=== PATIENT | male | born 1995 | race Caucasian/White ===

== ENCOUNTER 2021-02-21 13:24 | Emergency (ER) | payer MEDICAID ==
[~2021-02-21] VITALS: Ht 182.9 cm; Wt 136.4 kg
--- NOTE | 2021-02-21 13:49 | EKG ---
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
--- NOTE | 2021-02-21 14:09 | PHYS DOC ---
Past History Past Medical History: Asthma, Schizophrenia Additional Past Medical Histor: Borderline personality, PTSD Past Surgical History: Tonsillectomy Additional Past Surgical Histo: Right leg tumor removal-benign Smoking: Cigarettes Alcohol Use: None Drug Use: None General Adult EDM: Chief Complaint: PSYCH EVALUATION HPI: HPI: 25-year-old male presents via EMS with report of suicidal ideation and auditory hallucinations. Patient does have a history of schizophrenia. Patient reports he hears command voices. Reports they are telling him to "kill himself" and "stab himself ". Patient denies drug use. Patient reports he was recently dis charged from [facility]. Reports they told him "not to come back ". Patient reports concern he might hurt himself. Denies homicidal ideation. Denies fever chills. Denies cough. Denies known exposure to COVID- 19. Review of Systems: Review of Systems: Constitutional: Denies fever or chills Eyes: Denies redness or eye pain HENT: Denies nasal congestion or sore throat Respiratory: Denies cough or shortness of breath Cardiovascular: Denies chest pain or palpitations GI: Denies abdominal pain, nausea, or vomiting : Denies dysuria or hematuria Musculoskeletal: Denies back pain or joint pain Integument: Denies rash or skin lesions Neurologic: Denies headache, focal weakness or sensory changes Psychiatric: Reports suicidal ideation and auditory hallucinations Complete systems were reviewed and found to be within normal limits, except as documented in this note. Allergies: Allergies: Allergies Coded Allergies Type Severity Reaction Last Updated Verified No Known Drug Allergies 02/21/21 No Physical Exam: PE: Constitutional: Well developed, well nourished, no acute distress, non-toxic appearance HENT: Normocephalic, atraumatic Eyes: PERRL, EOMI, conjunctiva normal, no discharge Neck: Normal range of motion, no tenderness, supple Lungs & Thorax: No respiratory distress, equal chest rise and fall Abdomen: Soft, no tenderness Skin: Warm, dry, no erythema, no rash Back: No tenderness, no CVA tenderness Extremities: No tenderness, ROM intact, no edema Neurologic: Alert and oriented X 3, normal motor function, normal sensory function, no focal deficits noted Psychologic: Affect normal, judgment normal EKG: EKG: @1339 Sinus tachycardia at 110bpm, NO ST elevation, QRS 92ms, QT/QTc 314/430ms Radiology/Procedures: Radiology/Procedures: [] Heart Score: C/O Chest Pain: N/A Course & Med Decision Making: Course & Med Decision Making Pertinent Labs and Imaging studies reviewed. (See chart for details) [] Dragon Disclaimer: Dragon Disclaimer: This electronic medical record was generated, in whole or in part, using a voice recognition dictation system. Departure Departure: Impression: Primary Impression: Auditory hallucination Additional Impression: Suicidal ideation Disposition: HOME / SELF CARE / HOMELESS Condition: STABLE Referrals: PCP,NO (PCP) Patient Instructions: Hallucinations and Delusions, Suicidal Feelings, How to Help Yourself DIANA MAURICE DO Feb 21, 2021 14:09
[2021-02-21 14:28] LABS: BASO # 0.1 x10^3/uL (0.0-0.2); BASO % 1 % (0-3); EOS # 0.2 x10^3/uL (0.0-0.7); EOS % 3 % (0-3); HEMATOCRIT 42.7 % (39.0-53.0); HEMOGLOBIN 14.6 g/dL (13.0-17.5); LYMPH # 2.8 x10^3/uL (1.0-4.8); LYMPH % 35 % (24-48); MEAN CORPUSCULAR HEMOGLOBIN 30 pg (25-35); MEAN CORPUSCULAR HGB CONC 34 g/dL (31-37); MEAN CORPUSCULAR VOLUME 87 fL (79-100); MONO # 0.5 x10^3/uL (0.0-1.1); MONO % 6 % (0-9); NEUT # 4.5 x10^3uL (1.8-7.7); NEUT % 56 % (31-73); PLATELET COUNT 268 x10^3/uL (140-400); RED CELL DISTRIBUTION WIDTH 12.7 % (11.5-14.5)
[2021-02-21 14:33] LABS: CALCIUM 9.6 mg/dL (8.5-10.1); CREATININE 0.9 mg/dL (0.7-1.3); GFR 102.8; POTASSIUM 4.1 mmol/L (3.5-5.1)
[2021-02-21 14:38] LABS: BARBITURATES NEG (NEG); BENZODIAZEPINES NEG (NEG); CANNABINOIDS NEG (NEG); COCAINE NEG (NEG); METHADONE NEG (NEG); OPIATES NEG (NEG); PHENCYCLIDINE NEG (NEG)
[2021-02-21 14:39] LABS: ACETAMIN < 2.0 mcg/mL (10-30); ALBUMIN/GLOBULIN RATIO 1.1 (1.0-1.7); MAGNESIUM 1.9 mg/dL (1.8-2.4); SALIC < 2.8 mg/dL (2.8-20.0); TOTAL BILIRUBIN 0.3 mg/dL (0.2-1.0); TOTAL PROTEIN 7.5 g/dL (6.4-8.2)
[2021-02-21 14:40] LABS: AMPHETAMINE/METHAMPHETAMINE NEG (NEG); ETHANOL < 10 mg/dL (0-10)
[2021-02-21 14:52] LABS: BILIRUBIN,URINE NEG (NEG); CLARITY,URINE CLEAR; COLOR,URINE YELLOW; GLUCOSE,URINE NEG (NEG)
[2021-02-21 14:53] LABS: BACTERIA,URINE 0 /HPF (0-FEW); NITRITE,URINE NEG (NEG); RBC,URINE 0 /HPF (0-2); UROBILINOGEN,URINE 0.2 mg/dL (0.2 mg/dL); WBC,URINE 0 /HPF (0-4)
[2021-02-21 18:43] VITALS: BP 130/88
== END 2021-02-21 18:48 | disposition home or self-care (01) ==
LOC: ER 13:24
DX: R45.851 Suicidal ideations (principal); R44.0 Auditory hallucinations; J45.909 Unspecified asthma, uncomplicated; F20.9 Schizophrenia, unspecified; F17.210 Nicotine dependence, cigarettes, uncomplicated; F43.10 Post-traumatic stress disorder, unspecified; Z20.822 Contact with and (suspected) exposure to COVID-19
CPT/HCPCS: 36415; 80053; 80307; 80329; 81001; 83735; 85025; 87426; 93005; 99285; C9803; G0480; U0003

== ENCOUNTER 2021-03-01 18:48 | Emergency (ER) | payer SELFPAY ==
[~2021-03-01] VITALS: Ht 182.9 cm; Wt 136.4 kg
[2021-03-01] MEDS ORDERED: ALBU2.5V8 IH (19:07)
--- NOTE | 2021-03-01 19:07 | PHYS DOC ---
Past History Past Medical History: Asthma, Schizophrenia Additional Past Medical Histor: Borderline personality, PTSD Past Surgical History: Tonsillectomy Additional Past Surgical Histo: Right leg tumor removal-benign Smoking: Cigarettes Alcohol Use: None Drug Use: None Adult General Chief Complaint Chief Complaint: MULTIPLE COMPLAINTS [facility] HPI Patient is a 25-year-old male with a past medical history significant for asthma who presents to the emergency department with a chief complaint of shortness of breath. States that over the last day or so he has had some shortness of breath and wheeze but has been out of his albuterol inhaler because he has not had time to make it to the pharmacy. Denies any recent travel, illnesses, fevers, chest pain, abdominal pain, nausea, vomiting. Denies any other cold/flu/cold symptoms. States he is otherwise eating and drinking normally. States he is making urine and stool normally for him. States that he is here to get an albuterol treatment and see if he can get some albuterol for home. Review of Systems Review of Systems Review of systems otherwise unremarkable except noted in HPI Allergies Allergies Allergies Coded Allergies Type Severity Reaction Last Updated Verified No Known Drug Allergies 02/21/21 No Physical Exam Physical Exam Constitutional: Well developed, well nourished, no acute distress, non-toxic appearance. [] Eyes: conjunctiva normal, no discharge. [] Neck: Normal range of motion, no tenderness, supple, no stridor. [] Cardiovascular: Sinus tachycardia Lungs & Thorax: Mild bilateral upper lobe and expiratory wheeze Abdomen: soft, no tenderness, no masses, no pulsatile masses. [] Skin: Warm, dry, no erythema, no rash. [] Neurologic: Alert and oriented X 3, normal motor function, normal sensory function, no focal deficits noted. [] Psychologic: Affect normal, judgement normal, mood normal. [] EKG EKG EKG with a rate of 115, QRS of 94, QTc of 422, no STEMI. Otherwise normal EKG. [] Radiology/Procedures Radiology/Procedures [] Heart Score C/O Chest Pain: No Risk Factors: Risk Factors: DM, Current or recent (<one month) smoker, HTN, HLP, family history of CAD, obesity. Risk Scores: Risk Factors: DM, Current or recent (<one month) smoker, HTN, HLP, family history of CAD, obesity. Course & Med Decision Making Course & Med Decision Making Patient is a 25-year-old male who presents with asthma exacerbation/wheeze and requesting prescription for albuterol Vital signs notable for sinus tachycardia. Physical exam noted above. Patient given steroids and breathing treatment in the ED and given both prescription for albuterol and spacer. Advised patient to follow-up with primary care physician as soon as he can and make it to the pharmacy to case picker his other prescriptions. Gave return precautions to the ED. Patient grateful, verbalized understanding and agreed with plan of discharge. [] Dragon Disclaimer Dragon Disclaimer This electronic medical record was generated, in whole or in part, using a voice recognition dictation system. Departure Departure: Impression: Primary Impression: Asthma exacerbation Disposition: HOME / SELF CARE / HOMELESS Condition: GOOD Referrals: PCP,NO (PCP) Patient Instructions: Asthma Attacks, Prevention, Asthma, Acute Bronchospasm Additional Instructions: Please read all of the attached information carefully. Please use your albuterol inhaler and spacer as demonstrated and discussed. You are given a prescription that is new for your albuterol just in case you are unable to get your other one filled. Please call your primary care physician as soon as you can to update on ED visit and set up a follow-up as soon as you can. Please come back to the emergency department immediately with new or concerning symptoms as discussed. Scripts Albuterol Sulfate (PROAIR HFA INHALER) 8.5 Gm Hfa.aer.ad 2 PUFF IH PRN Q4-6HRS PRN for wheezing for 21 Days, #1 INHALER 0 Refills Prov: CLARE KAUFMAN MD 03/01/21 CLARE KAUFMAN MD Mar 01, 2021 19:07
[2021-03-01] MEDS ORDERED: DEXAMETHASONE 4 MG TABLET PO ONE (19:15)
[2021-03-01] MEDS ORDERED: ALBUTEROL SULFATE 8GM INHALER. INH ONE (19:15)
[2021-03-01 19:17] VITALS: BP 150/82
--- NOTE | 2021-03-01 19:58 | EKG ---
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
== END 2021-03-01 19:20 | disposition home or self-care (01) ==
LOC: ER 18:48
DX: J45.901 Unspecified asthma with (acute) exacerbation (principal); F20.9 Schizophrenia, unspecified; F43.10 Post-traumatic stress disorder, unspecified; F17.210 Nicotine dependence, cigarettes, uncomplicated
CPT/HCPCS: 93005; 94640; 99283; J8540; 94664

== ENCOUNTER 2021-03-01 20:02 | Emergency (ER) | payer SELFPAY ==
[~2021-03-01] VITALS: Ht 177.8 cm; Wt 122.0 kg
[~2021-03-01 20:02] MED LIST: ALBU2.5V8 IH
[2021-03-01 21:20] LABS: BASO # 0.1 x10^3/uL (0.0-0.2); BASO % 1 % (0-3); EOS # 0.1 x10^3/uL (0.0-0.7); EOS % 1 % (0-3); HEMATOCRIT 43.8 % (39.0-53.0); HEMOGLOBIN 14.8 g/dL (13.0-17.5); LYMPH # 2.5 x10^3/uL (1.0-4.8); LYMPH % 17 % (24-48); MEAN CORPUSCULAR HEMOGLOBIN 29 pg (25-35); MEAN CORPUSCULAR HGB CONC 34 g/dL (31-37); MEAN CORPUSCULAR VOLUME 86 fL (79-100); MONO # 0.6 x10^3/uL (0.0-1.1); MONO % 4 % (0-9); NEUT # 11.5 x10^3uL (1.8-7.7); NEUT % 77 % (31-73); PLATELET COUNT 283 x10^3/uL (140-400); RED BLOOD COUNT 5.06 x10^6/uL (4.30-5.70); RED CELL DISTRIBUTION WIDTH 12.8 % (11.5-14.5); WHITE BLOOD COUNT 14.9 x10^3/uL (4.0-11.0)
[2021-03-01 21:24] LABS: CALCIUM 10.3 mg/dL (8.5-10.1); POTASSIUM 3.7 mmol/L (3.5-5.1)
[2021-03-01 21:26] LABS: ACETAMIN < 2.0 mcg/mL (10-30); BARBITURATES NEG (NEG); BENZODIAZEPINES NEG (NEG); CANNABINOIDS NEG (NEG); COCAINE NEG (NEG); ETHANOL < 10 mg/dL (0-10); METHADONE NEG (NEG); OPIATES NEG (NEG); PHENCYCLIDINE NEG (NEG); SALIC < 2.8 mg/dL (2.8-20.0)
--- NOTE | 2021-03-01 21:26 | PHYS DOC ---
Adult General Chief Complaint Chief Complaint: SUICIDAL IDEATION HPI HPI Patient is a 25-year-old homeless male with a past medical history of schizophrenia who presents to the emergency department with a chief complaint of suicidal ideations and audio hallucinations. States he was just in the emergency department earlier in the day for an asthma exacerbation, was treated and released. States he did not really have any were to go, and was hearing voices so he called the ambulance. States he asked the ambulance to take him to [place] because that is where he wanted to go the EMS brought him here. Patient states he has had several visits to several hospitals over the [place] [facility] couple of months for similar complaints, and has seen the psychiatric team's and been offered admission but has never excepted. Denies any recent travel, traumas, illnesses, fevers, known ill contacts, chest pain, shortness of breath, abdominal pain, nausea, vomiting. Denies any numbness/weakness/tingling. Denies any alcohol or drug use. States he has had transient thoughts of wanting to be but does not have a plan. Denies homicidal ideation. States he is hearing voices that tell him he is worthless. Review of Systems Review of Systems Review of systems otherwise unremarkable except noted in HPI Physical Exam Physical Exam Constitutional: Well developed, well nourished, no acute distress, non-toxic appearance. [] HENT: Normocephalic, atraumatic, bilateral external ears normal, oropharynx moist, no oral exudates, nose normal. [] Eyes: PERRLA, EOMI, conjunctiva normal, no discharge. [] Neck: Normal range of motion, no tenderness, supple, no stridor. [] Cardiovascular:Heart rate regular rhythm, no murmur [] Lungs & Thorax: Bilateral breath sounds clear to auscultation [] Abdomen: Bowel sounds normal, soft, no tenderness, no masses, no pulsatile masses. [] Skin: Warm, dry, no erythema, no rash. [] Back: No tenderness, no CVA tenderness. [] Extremities: No tenderness, no cyanosis, no clubbing, ROM intact, no edema. [] Neurologic: Alert and oriented X 3, normal motor function, normal sensory function, no focal deficits noted. [] Psychologic: Awake, alert and pleasant, cooperative, normal speech and cognition, endorses transient thoughts of wanting to be but no active plan. Denies homicidal ideation. Endorses audio hallucinations of voices telling him he is worthless. EKG EKG [] Radiology/Procedures Radiology/Procedures [] Heart Score C/O Chest Pain: No Risk Factors: Risk Factors: DM, Current or recent (<one month) smoker, HTN, HLP, family history of CAD, obesity. Risk Scores: Risk Factors: DM, Current or recent (<one month) smoker, HTN, HLP, family history of CAD, obesity. Course & Med Decision Making Course & Med Decision Making Patient is a 25-year-old male that presents to the emergency department with complaints of being homeless, and hearing voices Vital signs not concerning. Physical exam noted above. PAT team evaluated, and felt patient was safe to discharge home with a safety plan. Discussed all findings with patient and offered admission, and patient stated he was actually feeling well and actually would just wanted a ride to [place] but appreciated the evaluation. Advised to follow-up with primary care physician and as soon as he can to update on ED visit, and psychiatric evaluation as well as safety plan. Gave strict return precautions to the ED. Patient grateful, verbalized understanding and agreed with plan of discharge. Patient called a cab at his request. [] Dragon Disclaimer Dragon Disclaimer This electronic medical record was generated, in whole or in part, using a voice recognition dictation system. Departure Departure: Impression: Primary Impression: Suicidal thoughts Additional Impressions: Auditory hallucinations Homelessness Disposition: HOME / SELF CARE / HOMELESS Condition: GOOD Referrals: BHAKTI CLARKE MD Patient Instructions: Suicidal Feelings, How to Help Yourself Additional Instructions: Please read all the attached information and the information given to you by the psychiatric steam engineer given to you including your safety plan carefully. Thalia boland call your primary care physician first thing Thursday morning to update on your ED visit, your psychiatric visit and your safety plan. As discussed call 911, and please come back to the emergency department immediately if you have any new or concerning symptoms as discussed. Problem Qualifiers CLARE KAUFMAN MD Mar 01, 2021 21:26
[2021-03-01 21:28] LABS: AMPHETAMINE/METHAMPHETAMINE NEG (NEG)
[2021-03-01 21:30] LABS: ALBUMIN 4.1 g/dL (3.4-5.0); TOTAL BILIRUBIN 0.3 mg/dL (0.2-1.0); TOTAL PROTEIN 8.4 g/dL (6.4-8.2)
[2021-03-01 22:33] VITALS: BP 138/90
== END 2021-03-01 22:32 | disposition home or self-care (01) ==
LOC: ER 20:02 → MERGE 20:02 → ER 22:32
DX: R45.851 Suicidal ideations (principal); R44.0 Auditory hallucinations; Z59.0 Homelessness; J45.901 Unspecified asthma with (acute) exacerbation
CPT/HCPCS: 36415; 80053; 80307; 80329; 85025; 99285; G0480

== ENCOUNTER 2021-03-02 15:44 | Emergency (ER) | payer SELFPAY ==
[~2021-03-02] VITALS: Ht 182.9 cm; Wt 136.4 kg
[2021-03-02 15:44] VITALS: BP 138/83
[2021-03-02 16:35] LABS: BASO # 0.1 x10^3/uL (0.0-0.2); BASO % 0 % (0-3); EOS % 0 % (0-3); HEMATOCRIT 42.8 % (39.0-53.0); HEMOGLOBIN 14.5 g/dL (13.0-17.5); LYMPH # 1.5 x10^3/uL (1.0-4.8); LYMPH % 10 % (24-48); MEAN CORPUSCULAR HEMOGLOBIN 29 pg (25-35); MEAN CORPUSCULAR HGB CONC 34 g/dL (31-37); MEAN CORPUSCULAR VOLUME 87 fL (79-100); MONO # 0.6 x10^3/uL (0.0-1.1); MONO % 4 % (0-9); NEUT # 12.6 x10^3uL (1.8-7.7); NEUT % 85 % (31-73); PLATELET COUNT 304 x10^3/uL (140-400); RED BLOOD COUNT 4.95 x10^6/uL (4.30-5.70); RED CELL DISTRIBUTION WIDTH 13.1 % (11.5-14.5); WHITE BLOOD COUNT 14.9 x10^3/uL (4.0-11.0)
[2021-03-02 16:41] LABS: BILIRUBIN,URINE NEG (NEG); CLARITY,URINE CLEAR; COLOR,URINE YELLOW; GLUCOSE,URINE NEG (NEG); NITRITE,URINE NEG (NEG); UROBILINOGEN,URINE 0.2 mg/dL (0.2 mg/dL)
[2021-03-02 16:43] LABS: BACTERIA,URINE 0 /HPF (0-FEW); RBC,URINE 0 /HPF (0-2); WBC,URINE 0 /HPF (0-4)
[2021-03-02 16:44] LABS: AMPHETAMINE/METHAMPHETAMINE NEG (NEG); BARBITURATES NEG (NEG); BENZODIAZEPINES NEG (NEG); CANNABINOIDS NEG (NEG); COCAINE NEG (NEG); METHADONE NEG (NEG); OPIATES NEG (NEG); PHENCYCLIDINE NEG (NEG)
[2021-03-02 16:46] LABS: CALCIUM 10.2 mg/dL (8.5-10.1); CREATININE 1.1 mg/dL (0.7-1.3); GFR 81.6; POTASSIUM 3.6 mmol/L (3.5-5.1)
[2021-03-02 16:51] LABS: ALBUMIN 4.1 g/dL (3.4-5.0); ALBUMIN/GLOBULIN RATIO 0.9 (1.0-1.7); TOTAL BILIRUBIN 0.3 mg/dL (0.2-1.0); TOTAL PROTEIN 8.5 g/dL (6.4-8.2)
--- NOTE | 2021-03-02 17:40 | PHYS DOC ---
Past History Past Medical History: Asthma, Schizophrenia Additional Past Medical Histor: Borderline personality, PTSD Past Surgical History: Tonsillectomy Additional Past Surgical Histo: Right leg tumor removal-benign Smoking: Cigarettes Alcohol Use: None Drug Use: None Adult General Chief Complaint Chief Complaint: SUICIDAL IDEATION [facility] Patient is 25-year-old male with past medical history of borderline personality disorder and PTSD who presents to the emergency room complaining of suicidal ideations and hearing voices. Patient states that he felt fine until some guys started fighting in the park and his voices started. He then became suicidal. Patient has been evaluated for similar symptoms 4 times in the last 10 days at [facility]. According to patient's guardian he has spent almost every day over the last year in a psychiatric facility. She states that a week ago he spent several days at [facility] awaiting placement before being discharged. Patient does not have a plan. Review of Systems Review of Systems Complete ROS is negative unless otherwise documented in [facility] Allergies Allergies Allergies Coded Allergies Type Severity Reaction Last Updated Verified No Known Drug Allergies 02/21/21 No Physical Exam Physical Exam General: Awake, alert, NAD. Well Nourished, well hydrated. Cooperative, sunburn diffusely HEENT: Atraumatic, EOMI, PERRL, airway patent, moist oral mucosa Neck: Supple, trachea midline Respiratory: CTA bilaterally, normal effort, no wheezing/crackles CV: RRR, no murmur, cap refill <2 GI: Soft, nondistended, nontender, no masses MSK: No obvious deformities Skin: Warm, dry, intact Neuro: A&O x3, speech NL, sensory and motor grossly intact, no focal deficits Psych: Normal affect, normal mood Current Patient Data Vital Signs Vital Signs Date Time Temp Pulse Resp B/P (MAP) Pulse Ox O2 Delivery O2 Flow Rate FiO2 03/02/21 15:44 98.3 122 20 138/83 (101) 100 Room Air Lab Results Laboratory Tests Test 03/02/21 16:05 03/02/21 16:14 Urine Collection Type Unknown Urine Color Yellow Urine Clarity Clear Urine pH 6.5 Urine Specific [place] 1.025 Urine Protein Trace (NEG-TRACE) Urine Glucose (UA) Neg mg/dL (NEG) Urine Ketones (Stick) 40 mg/dL (NEG) Urine Blood Neg (NEG) Urine Nitrite Neg (NEG) Urine Bilirubin Neg (NEG) Urine Urobilinogen Dipstick 0.2 mg/dL (0.2 mg/dL) Urine Leukocyte Esterase Neg (NEG) Urine RBC 0 /HPF (0-2) Urine WBC 0 /HPF (0-4) Urine Bacteria 0 /HPF (0-FEW) White Blood Count 14.9 x10^3/uL (4.0-11.0) H Red Blood Count 4.95 x10^6/uL (4.30-5.70) Hemoglobin 14.5 g/dL (13.0-17.5) Hematocrit 42.8 % (39.0-53.0) Mean Corpuscular Volume 87 fL (79-100) Mean Corpuscular Hemoglobin 29 pg (25-35) Mean Corpuscular Hemoglobin Concent 34 g/dL (31-37) Red Cell Distribution Width 13.1 % (11.5-14.5) Platelet Count 304 x10^3/uL (140-400) Neutrophils (%) (Auto) 85 % (31-73) H Lymphocytes (%) (Auto) 10 % (24-48) L Monocytes (%) (Auto) 4 % (0-9) Eosinophils (%) (Auto) 0 % (0-3) Basophils (%) (Auto) 0 % (0-3) Neutrophils # (Auto) 12.6 x10^3uL (1.8-7.7) H Lymphocytes # (Auto) 1.5 x10^3/uL (1.0-4.8) Monocytes # (Auto) 0.6 x10^3/uL (0.0-1.1) Eosinophils # (Auto) 0.0 x10^3/uL (0.0-0.7) Basophils # (Auto) 0.1 x10^3/uL (0.0-0.2) Sodium Level 137 mmol/L (136-145) Potassium Level 3.6 mmol/L (3.5-5.1) Chloride Level 101 mmol/L (98-107) Carbon Dioxide Level 28 mmol/L (21-32) Anion Gap 8 (6-14) Blood Urea Nitrogen 23 mg/dL (8-26) Creatinine 1.1 mg/dL (0.7-1.3) Estimated GFR (Cockcroft-Gault) 81.6 BUN/Creatinine Ratio 21 (6-20) H Glucose Level 156 mg/dL (70-99) H Calcium Level 10.2 mg/dL (8.5-10.1) H Total Bilirubin 0.3 mg/dL (0.2-1.0) Aspartate Amino Transferase (AST) 17 U/L (15-37) Alanine Aminotransferase (ALT) 32 U/L (16-63) Alkaline Phosphatase 48 U/L (46-116) Total Protein 8.5 g/dL (6.4-8.2) H Albumin 4.1 g/dL (3.4-5.0) Albumin/Globulin Ratio 0.9 (1.0-1.7) L Urine Opiates Screen Neg (NEG) Urine Methadone Screen Neg (NEG) Urine Barbiturates Neg (NEG) Urine Phencyclidine Screen Neg (NEG) Urine Amphetamine/Methamphetamine Neg (NEG) Urine Benzodiazepines Screen Neg (NEG) Urine Cocaine Screen Neg (NEG) Urine Cannabinoids Screen Neg (NEG) Ethyl Alcohol Level < 10 mg/dL (0-10) Urine Ethyl Alcohol Neg (NEG) EKG EKG [] Radiology/Procedures Radiology/Procedures [] Heart Score C/O Chest Pain: N/A Risk Factors: Risk Factors: DM, Current or recent (<one month) smoker, HTN, HLP, family history of CAD, obesity. Risk Scores: Risk Factors: DM, Current or recent (<one month) smoker, HTN, HLP, family history of CAD, obesity. Course & Med Decision Making Course & Med Decision Making Pertinent Labs and Imaging studies reviewed. (See chart for details) Patient is a 25-year-old with a history of borderline personality disorder who presents to the Emergency Room with suicidal ideations and hearing voices. Upon arrival the the Emergency Room, patient was changed into a gown and personal belongings were taken to security for safety. Patient was placed on a one-on-one. Lab work was ordered if requested by psychiatric team. PAT team was consulted for evaluation. After discussion with PAT team the decision was made to pursue safety plan. This appears to be the patient's baseline. He is no longer complaining of suicidal ideations but is complaining of voices. Patient will go to [facility]. Ernst Disclaimer Dragon Disclaimer This electronic medical record was generated, in whole or in part, using a voice recognition dictation system. Departure Departure: Impression: Primary Impression: Borderline personality disorder Additional Impression: Auditory hallucination Disposition: [address] [place] [address] ([facility]) Referrals: STACEY JOHNSON MD (PCP) Patient Instructions: Borderline Personality Disorder Problem Qualifiers LANCE FUNK MD Mar 02, 2021 17:39
== END 2021-03-02 19:29 ==
LOC: ER 15:44
DX: R44.0 Auditory hallucinations (principal); J45.909 Unspecified asthma, uncomplicated; F43.10 Post-traumatic stress disorder, unspecified; F17.210 Nicotine dependence, cigarettes, uncomplicated
CPT/HCPCS: 36415; 80053; 80307; 81001; 85025; 99285; G0480

== ENCOUNTER 2021-03-04 01:47 | Emergency (ER) | payer SELFPAY ==
[~2021-03-04] VITALS: Ht 182.9 cm; Wt 136.4 kg
[2021-03-04 01:57] VITALS: BP 143/91
--- NOTE | 2021-03-04 02:03 | PHYS DOC ---
Past History Past Medical History: Asthma, Schizophrenia Additional Past Medical Histor: Borderline personality, PTSD Past Surgical History: Tonsillectomy Additional Past Surgical Histo: Right leg tumor removal-benign Smoking: Cigarettes Alcohol Use: None Drug Use: None General Adult EDM: Chief Complaint: HALLUCINATIONS AUDIBLE/VISUAL HPI: HPI: 25-year-old male presents for audible hallucinations. The patient started having these hallucinations around 8 PM tonight. Patient has diagnosed schizoaffective disorder. He has been dealing with voices on and off for many years. The voices are telling him to hurt himself or kill himself. They are not giving any specific directions. The patient is taking his medications as prescribed. He states that he was unable to get into the senior care tonight because he got there late. He was working all day. Patient denies any falls or trauma. He has no other complaints at this time. Review of Systems: Review of Systems: Constitutional: Denies fever or chills Eyes: Denies change in visual acuity HENT: Denies nasal congestion or sore throat Respiratory: Denies cough or shortness of breath Cardiovascular: Denies chest pain or edema GI: Denies abdominal pain, nausea, vomiting, bloody stools or diarrhea : Denies dysuria Musculoskeletal: Denies back pain or joint pain Integument: Denies rash Neurologic: Denies headache, focal weakness or sensory changes. Audible hallucinations Endocrine: Denies polyuria or polydipsia Lymphatic: Denies swollen glands Psychiatric: Denies depression or anxiety Allergies: Allergies: Allergies Coded Allergies Type Severity Reaction Last Updated Verified No Known Drug Allergies 03/04/21 No Physical Exam: PE: Constitutional: Well developed, well nourished, obese, no acute distress, non- toxic appearance. [] HENT: Normocephalic, atraumatic, bilateral external ears normal, oropharynx moist, no oral exudates, nose normal. [] Eyes: PERRLA, EOMI, conjunctiva normal, no discharge. [] Neck: Normal range of motion, no tenderness, supple, no stridor. [] Cardiovascular: Heart rate regular rhythm, no murmur [] Lungs & Thorax: Bilateral breath sounds clear to auscultation [] Abdomen: Bowel sounds normal, soft, no tenderness, no masses, no pulsatile masses. [] Skin: Warm, dry, no erythema, no rash. Sunburn on the face and lower arms bilaterally [] Back: No tenderness, no CVA tenderness. [] Extremities: No tenderness, no cyanosis, no clubbing, ROM intact, no edema. [] Neurologic: Alert and oriented X 3, normal motor function, normal sensory function, no focal deficits noted. [] Psychologic: Affect normal, judgement normal, mood normal. [] EKG: EKG: [] Radiology/Procedures: Radiology/Procedures: [] Heart Score: C/O Chest Pain: N/A Risk Factors: Risk Factors: DM, Current or recent (<one month) smoker, HTN, HLP, family history of CAD, obesity. Risk Scores: Score 0 - 3: 2.5% MACE over next 6 weeks - Discharge Home Score 4 - 6: 20.3% MACE over next 6 weeks - Admit for Clinical Observation Score 7 - 10: 72.7% MACE over next 6 weeks - Early Invasive Strategies Course & Med Decision Making: Course & Med Decision Making Pertinent Labs and Imaging studies reviewed. (See chart for details) The patient's labs are unremarkable. His urine drug screen is negative. His urinalysis is negative for infection. He is medically stable for psychiatric evaluation. The patient psychiatric anti air warfare operations officer has determined that the patient can be safely discharged home. [facility]. He is stable for discharge at this time. [] Dragon Disclaimer: Ernst Disclaimer: This electronic medical record was generated, in whole or in part, using a voice recognition dictation system. Departure Departure: Impression: Primary Impression: Suicidal thoughts Additional Impression: Hallucination Disposition: 01 HOME / SELF CARE / HOMELESS Condition: STABLE Referrals: STACEY JOHNSON MD (PCP) Patient Instructions: Hallucinations and Delusions GUI WIGGINS DO Mar 04, 2021 02:03
[2021-03-04 02:45] LABS: BASO # 0.1 x10^3/uL (0.0-0.2); BASO % 1 % (0-3); EOS # 0.2 x10^3/uL (0.0-0.7); EOS % 2 % (0-3); HEMATOCRIT 41.8 % (39.0-53.0); HEMOGLOBIN 14.3 g/dL (13.0-17.5); LYMPH # 3.6 x10^3/uL (1.0-4.8); LYMPH % 44 % (24-48); MEAN CORPUSCULAR HEMOGLOBIN 30 pg (25-35); MEAN CORPUSCULAR HGB CONC 34 g/dL (31-37); MEAN CORPUSCULAR VOLUME 87 fL (79-100); MONO # 0.4 x10^3/uL (0.0-1.1); MONO % 5 % (0-9); NEUT % 48 % (31-73); PLATELET COUNT 286 x10^3/uL (140-400); RED CELL DISTRIBUTION WIDTH 13.1 % (11.5-14.5); WHITE BLOOD COUNT 8.3 x10^3/uL (4.0-11.0)
[2021-03-04 02:46] LABS: BACTERIA,URINE 0 /HPF (0-FEW); BILIRUBIN,URINE NEG (NEG); CLARITY,URINE CLEAR; COLOR,URINE YELLOW; GLUCOSE,URINE NEG (NEG); NITRITE,URINE NEG (NEG); RBC,URINE 0 /HPF (0-2); SQUAMOUS EPITHELIAL CELL,UR OCC /LPF; UROBILINOGEN,URINE 0.2 mg/dL (0.2 mg/dL); WBC,URINE OCC /HPF (0-4)
[2021-03-04 02:52] LABS: CALCIUM 9.2 mg/dL (8.5-10.1); CREATININE 0.8 mg/dL (0.7-1.3); GFR 117.8
[2021-03-04 02:54] LABS: BARBITURATES NEG (NEG); BENZODIAZEPINES NEG (NEG); CANNABINOIDS NEG (NEG); COCAINE NEG (NEG); METHADONE NEG (NEG); OPIATES NEG (NEG); PHENCYCLIDINE NEG (NEG)
[2021-03-04 02:56] LABS: AMPHETAMINE/METHAMPHETAMINE NEG (NEG)
[2021-03-04 02:58] LABS: ALBUMIN 3.7 g/dL (3.4-5.0); ALBUMIN/GLOBULIN RATIO 0.9 (1.0-1.7); TOTAL BILIRUBIN 0.2 mg/dL (0.2-1.0); TOTAL PROTEIN 7.6 g/dL (6.4-8.2)
== END 2021-03-04 04:42 | disposition home or self-care (01) ==
LOC: ER 01:47
DX: R45.851 Suicidal ideations (principal); F25.9 Schizoaffective disorder, unspecified; J45.909 Unspecified asthma, uncomplicated; F17.210 Nicotine dependence, cigarettes, uncomplicated
CPT/HCPCS: 36415; 80053; 80307; 81001; 85025; 99285-25

== ENCOUNTER → 2021-03-12 | Emergency (ER) | payer SELFPAY ==
[~2021-03-12] VITALS: Ht 182.9 cm; Wt 136.4 kg
[2021-03-12 18:24] LABS: CALCIUM 9.7 mg/dL (8.5-10.1); CREATININE 0.8 mg/dL (0.7-1.3); GFR 117.8; POTASSIUM 3.8 mmol/L (3.5-5.1)
[2021-03-12 18:26] LABS: BASO % 0 % (0-3); EOS # 0.3 x10^3/uL (0.0-0.7); EOS % 4 % (0-3); HEMATOCRIT 46.2 % (39.0-53.0); HEMOGLOBIN 15.2 g/dL (13.0-17.5); LYMPH % 34 % (24-48); MEAN CORPUSCULAR HEMOGLOBIN 29 pg (25-35); MEAN CORPUSCULAR HGB CONC 33 g/dL (31-37); MEAN CORPUSCULAR VOLUME 88 fL (79-100); MONO # 0.6 x10^3/uL (0.0-1.1); MONO % 7 % (0-9); NEUT # 4.8 x10^3uL (1.8-7.7); NEUT % 55 % (31-73); PLATELET COUNT 308 x10^3/uL (140-400); RED BLOOD COUNT 5.27 x10^6/uL (4.30-5.70); RED CELL DISTRIBUTION WIDTH 13.3 % (11.5-14.5); WHITE BLOOD COUNT 8.7 x10^3/uL (4.0-11.0)
[2021-03-12 18:30] LABS: ALBUMIN/GLOBULIN RATIO 1.1 (1.0-1.7); TOTAL BILIRUBIN 0.2 mg/dL (0.2-1.0); TOTAL PROTEIN 7.6 g/dL (6.4-8.2)
--- NOTE | 2021-03-12 18:38 | PHYS DOC ---
Past History Past Medical History: Anxiety, Asthma, Schizophrenia Additional Past Medical Histor: Borderline personality, PTSD, schizo effective d/o Past Surgical History: Tonsillectomy Additional Past Surgical Histo: Right leg tumor removal-benign Smoking: Cigarettes Alcohol Use: None Additional Alcohol Information: 4-5 beers today Drug Use: None Adult General Chief Complaint Chief Complaint: PSYCH EVALUATION HPI HPI Patient is a 25-year-old male with a past medical history of schizophrenia who presents to the emergency department with a chief complaint of anxiety and audio hallucinations. States he has been otherwise doing well and going to the [facility] and has his medications at home but fell off the wagon and did some methamphetamine on Thursday and drink alcohol today. Does state that whenever he does that, it seems to make and hear things. States that he has had some voices telling him that he is worthless and would be better off but has no suicidal ideation, homicidal ideation, or plan of hurting himself or anybody else. Denies any recent travel, illnesses, fevers, chest pain, shortness of breath, abdominal pain, nausea, vomiting. States has been eating and drinking normal for him. Review of Systems Review of Systems Review of systems otherwise unremarkable except noted in HPI Allergies Allergies Allergies Coded Allergies Type Severity Reaction Last Updated Verified No Known Allergies Allergy Unknown 03/04/21 Yes Physical Exam Physical Exam Constitutional: Well developed, well nourished, no acute distress, non-toxic appearance. [] HENT: Normocephalic, atraumatic, bilateral external ears normal, oropharynx moist, no oral exudates, nose normal. [] Eyes: PERRLA, conjunctiva normal, no discharge. [] Neck: Normal range of motion, Cardiovascular: Sinus tachycardia Lungs & Thorax: Bilateral breath sounds clear to auscultation [] Abdomen: soft, no tenderness, Skin: Warm, dry, no erythema, no rash. [] Extremities: No tenderness, ROM intact, Neurologic: Alert and oriented X 3, no focal deficits noted. [] Psychologic: Affect normal, judgement normal, mood normal. [] Current Patient Data Vital Signs Vital Signs Date Time Temp Pulse Resp B/P (MAP) Pulse Ox O2 Delivery O2 Flow Rate FiO2 03/12/21 17:52 98.7 112 20 146/84 (104) 98 Room Air Lab Results Laboratory Tests Test 03/12/21 18:03 Sodium Level 142 mmol/L (136-145) Potassium Level 3.8 mmol/L (3.5-5.1) Chloride Level 103 mmol/L (98-107) Carbon Dioxide Level 28 mmol/L (21-32) Anion Gap 11 (6-14) Blood Urea Nitrogen 11 mg/dL (8-26) Creatinine 0.8 mg/dL (0.7-1.3) Estimated GFR (Cockcroft-Gault) 117.8 BUN/Creatinine Ratio 14 (6-20) Glucose Level 97 mg/dL (70-99) Calcium Level 9.7 mg/dL (8.5-10.1) Total Bilirubin 0.2 mg/dL (0.2-1.0) Aspartate Amino Transferase (AST) 20 U/L (15-37) Alanine Aminotransferase (ALT) 42 U/L (16-63) Alkaline Phosphatase 52 U/L (46-116) Total Protein 7.6 g/dL (6.4-8.2) Albumin 4.0 g/dL (3.4-5.0) Albumin/Globulin Ratio 1.1 (1.0-1.7) EKG EKG [] Radiology/Procedures Radiology/Procedures [] Heart Score C/O Chest Pain: No Risk Factors: Risk Factors: DM, Current or recent (<one month) smoker, HTN, HLP, family history of CAD, obesity. Risk Scores: Risk Factors: DM, Current or recent (<one month) smoker, HTN, HLP, family history of CAD, obesity. Course & Med Decision Making Course & Med Decision Making Patient is a 25-year-old male who presents to the emergency department for anxiety and audio hallucinations Vital signs notable for sinus tachycardia. Physical exam noted above. Patient with no suicidal, homicidal ideations or plans to hurt himself or others. Does have his medications at home and is taking them and is [facility] with [facility]. Does endorse doing methamphetamine 2 days ago and drinking alcohol today which he states usually causes some type of hallucinations when he does that. States he is currently not hallucinating. [facility] team knows patient well and visited with him in the emergency department. Both patient, and [facility] team felt that patient is safe to be discharged home with a safety plan and has an upcoming appointment with the [facility], has all his medications and has a job he needs to go to. Discussed this plan with patient who did state he felt safe to be discharged with safety plan and keep his upcoming guidance appointments. Gave strict return precautions to the ED. Patient grateful, verbalized understanding and agreed with plan of discharge. [] Dragon Disclaimer Dragon Disclaimer This electronic medical record was generated, in whole or in part, using a voice recognition dictation system. Departure Departure: Impression: Primary Impression: Anxiety Additional Impression: Auditory hallucinations Disposition: HOME / SELF CARE / HOMELESS Condition: GOOD Referrals: STACEY JOHNSON MD (PCP) Patient Instructions: Anxiety and Panic Attacks, [id number], Schizophrenia Additional Instructions: Please read all of the attached information carefully. Please take all your medications as prescribed. Please keep your upcoming appointments with the [facility] for continued management as discussed. Please read over the safety plan given to you and discussed with you by our psychiatric liaison. Thalia kya come back to the emergency department immediately with new or concerning symptoms as discussed. Problem Qualifiers CLARE KAUFMAN MD March 12, 2021 18:38
[2021-03-12 19:33] LABS: ACETAMIN < 2 mcg/mL (10-30); ETHANOL < 10 mg/dL (0-10); SALIC < 2.8 mg/dL (2.8-20.0)
[2021-03-12 19:40] VITALS: BP 163/87
[2021-03-12 19:46] LABS: BARBITURATES NEG (NEG); BENZODIAZEPINES NEG (NEG); CANNABINOIDS POS (NEG); COCAINE NEG (NEG); METHADONE NEG (NEG); OPIATES NEG (NEG); PHENCYCLIDINE NEG (NEG)
[2021-03-12 19:49] LABS: AMPHETAMINE/METHAMPHETAMINE NEG (NEG)
[2021-03-12 20:07] LABS: BILIRUBIN,URINE NEG (NEG); CLARITY,URINE CLEAR; COLOR,URINE YELLOW; GLUCOSE,URINE NEG (NEG); NITRITE,URINE NEG (NEG); UROBILINOGEN,URINE 0.2 mg/dL (0.2 mg/dL)
[2021-03-12 20:08] LABS: BACTERIA,URINE 0 /HPF (0-FEW); RBC,URINE 0 /HPF (0-2); SQUAMOUS EPITHELIAL CELL,UR OCC /LPF; WBC,URINE 0 /HPF (0-4)
== END ==
LOC: ER 16:55
DX: F41.9 Anxiety disorder, unspecified (principal); R44.0 Auditory hallucinations; J45.909 Unspecified asthma, uncomplicated; F20.9 Schizophrenia, unspecified; F43.10 Post-traumatic stress disorder, unspecified; F17.210 Nicotine dependence, cigarettes, uncomplicated
CPT/HCPCS: 36415; 80053; 80307; 80329; 81001; 85025; 99283; G0480

== ENCOUNTER 2021-04-12 23:03 | Emergency (ER) | payer SELFPAY ==
[~2021-04-12] VITALS: Ht 182.9 cm; Wt 136.4 kg
[2021-04-12 23:09] VITALS: BP 154/92
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
== END 2021-04-12 23:56 | disposition home or self-care (01) ==
LOC: ER 23:03
DX: F10.129 Alcohol abuse with intoxication, unspecified (principal); I10 Essential (primary) hypertension; J45.909 Unspecified asthma, uncomplicated; F17.210 Nicotine dependence, cigarettes, uncomplicated; Z86.73 Personal history of transient ischemic attack (TIA), and cerebral infarction without residual deficits; Z59.0 Homelessness; Y90.8 Blood alcohol level of 240 mg/100 ml or more
CPT/HCPCS: 82947; 99282-25

== ENCOUNTER 2021-04-15 02:40 | Emergency (ER) | payer SELFPAY ==
[~2021-04-15] VITALS: Ht 182.9 cm; Wt 136.4 kg
--- NOTE | 2021-04-15 02:50 | PHYS DOC ---
Past History Past Medical History: Anxiety, Asthma, Schizophrenia, TIA Additional Past Medical Histor: Borderline personality, PTSD, schizo effective d/o Past Surgical History: Tonsillectomy Additional Past Surgical Histo: Right leg tumor removal-benign Smoking: Cigarettes Alcohol Use: None Drug Use: None Adult General HPI HPI Patient is a 25-year-old homeless man who presents to the emergency department with a chief complaint of homelessness, and being thirsty and hungry. States he usually stays in the park but somebody called the ambulance and that he decided to come to the emergency department. Denies any medical complaints at this time and need for work-up. Wanted something to eat and drink and a way to get to the mission. Review of Systems Review of Systems Review of systems otherwise unremarkable except noted in HPI Allergies Allergies Allergies Coded Allergies Type Severity Reaction Last Updated Verified No Known Allergies Allergy Unknown 04/12/21 Yes Physical Exam Physical Exam Constitutional: Well developed, well nourished, no acute distress, non-toxic appearance. [] HENT: Normocephalic, atraumatic, bilateral external ears normal, oropharynx moist, no oral exudates, nose normal. [] Eyes: conjunctiva normal, no discharge. [] Neck: Normal range of motion, no tenderness, supple, no stridor. [] Cardiovascular:Heart rate regular rhythm, no murmur [] Lungs & Thorax: No respiratory distress Skin: Warm, dry, no erythema, no rash. [] Neurologic: Alert and oriented X 3, no focal deficits noted. [] Psychologic: Affect normal, judgement normal, mood normal. [] EKG EKG [] Radiology/Procedures Radiology/Procedures [] Heart Score C/O Chest Pain: No Risk Factors: Risk Factors: DM, Current or recent (<one month) smoker, HTN, HLP, family history of CAD, obesity. Risk Scores: Risk Factors: DM, Current or recent (<one month) smoker, HTN, HLP, family hi story of CAD, obesity. Course & Med Decision Making Course & Med Decision Making Patient is a 25-year-old homeless male who presents to the emergency department for hunger, thirst and need for ride to the mission Vital signs not concerning. Physical exam noted above. Patient given meal in the emergency department. Patient given cab voucher to the mission. Patient very grateful, verbalized understanding and agreed with plan of discharge. [] Ernst Disclaimer Dragon Disclaimer This electronic medical record was generated, in whole or in part, using a voice recognition dictation system. Departure Departure: Disposition: 01 HOME / SELF CARE / HOMELESS Condition: GOOD Referrals: STACEY JOHNSON MD (PCP) Additional Instructions: He was seen in the emergency department tonight and given a meal. You were also given a cab voucher to the mission. You are also given resources for local primary care physicians and free clinics. Please follow-up with them as soon as you can to establish care. Please come back to emergency department with new or concerning symptoms as discussed. CLARE KAUFMAN MD Apr 15, 2021 02:50
[2021-04-15 03:05] VITALS: BP 145/91
== END 2021-04-15 03:05 | disposition home or self-care (01) ==
LOC: ER 02:40
DX: J45.909 Unspecified asthma, uncomplicated (principal); F17.210 Nicotine dependence, cigarettes, uncomplicated; Z59.0 Homelessness; Z86.73 Personal history of transient ischemic attack (TIA), and cerebral infarction without residual deficits
CPT/HCPCS: 99281

== ENCOUNTER 2021-04-18 21:02 | Emergency (ER) | payer MEDICAID ==
[~2021-04-18] VITALS: Ht 182.9 cm; Wt 129.5 kg
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
[2021-04-18] MEDS ORDERED: IV NORMAL SALINE 1,000ML 1,000 ML IV ONE (21:30)
[2021-04-18 22:38] LABS: BASO # 0.1 x10^3/uL (0.0-0.2); BASO % 1 % (0-3); EOS # 0.2 x10^3/uL (0.0-0.7); EOS % 2 % (0-3); HEMATOCRIT 40.2 % (39.0-53.0); HEMOGLOBIN 13.8 g/dL (13.0-17.5); LYMPH # 2.2 x10^3/uL (1.0-4.8); LYMPH % 28 % (24-48); MEAN CORPUSCULAR HEMOGLOBIN 30 pg (25-35); MEAN CORPUSCULAR HGB CONC 34 g/dL (31-37); MEAN CORPUSCULAR VOLUME 87 fL (79-100); MONO # 0.4 x10^3/uL (0.0-1.1); MONO % 5 % (0-9); NEUT % 64 % (31-73); PLATELET COUNT 233 x10^3/uL (140-400); RED BLOOD COUNT 4.63 x10^6/uL (4.30-5.70); RED CELL DISTRIBUTION WIDTH 14.1 % (11.5-14.5); WHITE BLOOD COUNT 7.9 x10^3/uL (4.0-11.0)
[2021-04-18 22:49] LABS: BACTERIA,URINE 0 /HPF (0-FEW); BILIRUBIN,URINE NEG (NEG); CLARITY,URINE CLEAR; COLOR,URINE YELLOW; GLUCOSE,URINE NEG (NEG); NITRITE,URINE NEG (NEG); RBC,URINE 0 /HPF (0-2); SQUAMOUS EPITHELIAL CELL,UR OCC /LPF; UROBILINOGEN,URINE 0.2 mg/dL (0.2 mg/dL); WBC,URINE OCC /HPF (0-4)
[2021-04-18 22:51] LABS: BARBITURATES NEG (NEG); BENZODIAZEPINES NEG (NEG); CANNABINOIDS NEG (NEG); COCAINE NEG (NEG); METHADONE NEG (NEG); OPIATES NEG (NEG); PHENCYCLIDINE NEG (NEG)
[2021-04-18 22:51] LABS: CALCIUM 9.4 mg/dL (8.5-10.1); CREATININE 0.8 mg/dL (0.7-1.3); GFR 117.8; POTASSIUM 3.7 mmol/L (3.5-5.1)
[2021-04-18 22:56] LABS: ALBUMIN 3.8 g/dL (3.4-5.0); ALBUMIN/GLOBULIN RATIO 1.1 (1.0-1.7); TOTAL BILIRUBIN 0.2 mg/dL (0.2-1.0); TOTAL PROTEIN 7.2 g/dL (6.4-8.2)
[2021-04-18 23:01] LABS: AMPHETAMINE/METHAMPHETAMINE NEG (NEG)
[2021-04-19] MEDS ORDERED: LORazepam 1 MG TABLET PO ONE (01:15)
[2021-04-19] MEDS ORDERED: ALBUTEROL SULFATE 8GM INHALER. INH ONE (01:45)
[2021-04-19 02:25] VITALS: BP 116/70
== END 2021-04-19 02:28 ==
LOC: ER 21:02
DX: R45.851 Suicidal ideations (principal); F41.9 Anxiety disorder, unspecified; J45.909 Unspecified asthma, uncomplicated; F17.210 Nicotine dependence, cigarettes, uncomplicated; Z86.73 Personal history of transient ischemic attack (TIA), and cerebral infarction without residual deficits; Z20.822 Contact with and (suspected) exposure to COVID-19
CPT/HCPCS: 36415; 80053; 80307; 81001; 85025; 87426; 96360; 99285; C9803; J7030; U0003